=== PATIENT | male | born 1995 | race African-American/Black ===

== ENCOUNTER 2017-10-15 16:52 | Emergency (ER) | payer OTHER ==
[~2017-10-15] VITALS: Ht 190.5 cm; Wt 97.5 kg
[2017-10-15 16:52] VITALS: BP 130/91
== END 2017-10-15 20:05 | disposition home or self-care (01) ==
LOC: ER 16:59
DX: S60.511A Abrasion of right hand, initial encounter (principal); M79.641 Pain in right hand; Y04.0XXA Assault by unarmed brawl or fight, initial encounter; Y93.89 Activity, other specified; Y92.89 Other specified places as the place of occurrence of the external cause; Y99.8 Other external cause status
CPT/HCPCS: 73130; 99284; A4606; Z7610